=== PATIENT | male | born 1955 | race Caucasian/White ===

== ENCOUNTER 2023-02-10 09:13 | Outpatient (CLI) | payer MEDICARE, OTHER ==
[2023-02-10 09:36] LABS: BASOPHILS # (AUTO) 0.1 10^3/uL (0.0-0.1); BASOPHILS % (AUTO) 0.7 %; EOSINOPHILS # (AUTO) 0.2 10^3/uL (0.0-0.7); EOSINOPHILS % (AUTO) 2.4 %; HCT - HEMATOCRIT 44.6 % (42.0-52.0); HGB - HEMOGLOBIN 15.6 g/dL (14.0-18.0); LYMPHOCYTES # (AUTO) 2.1 10^3/uL (1.5-3.5); LYMPHOCYTES % (AUTO) 29.2 %; MEAN CORPUSCULAR HEMOGLOBIN 33.6 pg (27.0-31.0); MEAN CORPUSCULAR VOLUME 96.1 fL (80.0-94.0); MEAN PLATELET VOLUME 9.6 fL (7.4-11.4); MONOCYTES # (AUTO) 0.8 10^3/uL (0.0-1.0); MONOCYTES % (AUTO) 11.6 %; NEUTROPHILS # (AUTO) 3.9 10^3/uL (1.5-6.6); NEUTROPHILS % (AUTO) 55.3 %; PLT - PLATELET COUNT 187 10^3/uL (130-450); RED BLOOD COUNT 4.64 10^6/uL (4.70-6.10); RED CELL DISTRIBUTION WIDTH 12.3 % (12.0-15.0); WHITE BLOOD COUNT 7.1 x10^3/uL (4.8-10.8)
[2023-02-10 09:49] LABS: ALBUMIN 4.3 g/dL (3.2-5.5); ALBUMIN/GLOBULIN RATIO 1.5 (1.0-2.2); ALKALINE PHOSPHATASE 72 IU/L (42-121); ALT ALANINE AMINOTRANSFERASE 25 IU/L (10-60); AST ASPARTATE AMINOTRANSFERASE 20 IU/L (10-42); BILIRUBIN,TOTAL 0.6 mg/dL (0.2-1.0); BUN - BLOOD UREA NITROGEN 18 mg/dL (6-20); CALCIUM 9.4 mg/dL (8.5-10.3); CARBON DIOXIDE - CO2 25 mmol/L (21-32); CHLORIDE 101 mmol/L (101-111); CHOL/HDL RATIO 4.4 (<5.0); CHOLESTEROL 251 mg/dL; GFR - MDRD 75 (>89); GLUCOSE 119 mg/dL (70-100); HDL CHOLESTEROL 57 mg/dL; LDL CHOLESTEROL,CALCULATED 132 mg/dL; LDL/HDL RATIO 2.3 (<3.6); POTASSIUM 4.1 mmol/L (3.5-5.0); SODIUM 134 mmol/L (135-145); TOTAL PROTEIN 7.1 g/dL (6.7-8.2); TRIGLYCERIDES 309 mg/dL; VLDL CHOLESTEROL 62 mg/dL
[2023-02-10 10:01] LABS: THYROID STIMULATING HORMONE 4.84 uIU/mL (0.34-5.60)
[2023-02-10 10:17] LABS: ESTIMATED AVERAGE GLUCOSE 131 mg/dL (70-100); HEMOGLOBIN A1c% 6.2 % (4.27-6.07)
== END 2023-02-10 09:14 | disposition home or self-care (01) ==
LOC: LAB 09:13
PROVIDERS: ATTEND Nurse Practitioner Family
DX: I10 Essential (primary) hypertension (principal); Z13.220 Encounter for screening for lipoid disorders; Z13.1 Encounter for screening for diabetes mellitus; Z12.5 Encounter for screening for malignant neoplasm of prostate
CPT/HCPCS: 36415; 80053; 80061; 83036; 84443; 85025; G0103; 83721; 84153

== ENCOUNTER 2023-02-28 14:49 | Outpatient (CLI) | payer MEDICARE, OTHER ==
--- NOTE | 2023-02-28 16:26 | CT Report ---
PROCEDURE: Low Dose Lung Cancer Screen INDICATIONS: HEAVY SMOKER TECHNIQUE: Noncontrast low-dose axial images were acquired from the pulmonary apices to the posterior costophren ic angles. Multiplanar MIP reformats were then reconstructed. For radiation dose reduction, the follo wing was used: automated exposure control, adjustment of mA and/or kV according to patient size. COMPARISON: None. FINDINGS: Image quality: Excellent. Prior cancer history: Lungs and pleura: No pleural effusions. No pneumothorax. No suspicious pulmonary nodules which requi re follow up. Mediastinum: Heart size is normal. No pericardial effusions. No mediastinal adenopathy by size criter ia. No large vessel abnormality. Chest wall and lower neck: Thyroid is unremarkable. No axillary or supraclavicular adenopathy by size . Bones: No aggressive osseous abnormality. Upper Abdomen: Unremarkable. IMPRESSION: No visualized nodules. Lungs are clear. Lung RAD: 1 - Negative. Recommendation: Annual CT screening Reviewed by: Tereza Kaiser MD on 02/28/2023 4:25 PM PDT Approved by: Tereza Kaiser MD on 02/28/2023 4:25 PM PDT Station ID: [id number]
== END 2023-02-28 14:50 | disposition home or self-care (01) ==
LOC: DI 14:49
PROVIDERS: ATTEND Nurse Practitioner Family
DX: Z12.2 Encounter for screening for malignant neoplasm of respiratory organs (principal); F17.210 Nicotine dependence, cigarettes, uncomplicated; I10 Essential (primary) hypertension

== ENCOUNTER 2023-08-09 10:41 | Outpatient (CLI) | payer MEDICARE, OTHER ==
[2023-08-09 11:10] LABS: CALCIUM 9.6 mg/dL (8.5-10.3); POTASSIUM 4.1 mmol/L (3.5-4.5)
[2023-08-09 11:42] LABS: ESTIMATED AVERAGE GLUCOSE 134 mg/dL (70-100); HEMOGLOBIN A1c% 6.3 % (4.27-6.07)
== END 2023-08-09 10:42 | disposition home or self-care (01) ==
LOC: LAB 10:41
PROVIDERS: ATTEND Nurse Practitioner Family
DX: I10 Essential (primary) hypertension (principal); R73.03 Prediabetes
CPT/HCPCS: 36415; 80048; 83036

== ENCOUNTER 2023-11-03 14:59 | Outpatient (CLI) | payer MEDICARE, OTHER | END 2023-11-03 15:00 | disposition home or self-care (01) | LOC: DI 14:59 | PROVIDERS: ATTEND Nurse Practitioner Family | DX: I05.9 Rheumatic mitral valve disease, unspecified (principal); I11.9 Hypertensive heart disease without heart failure | CPT/HCPCS: 93306 ==

== ENCOUNTER 2024-04-20 09:12 | Outpatient (CLI) | payer MEDICARE, OTHER ==
[2024-04-20 09:24] LABS: BASOPHILS # (AUTO) 0.1 10^3/uL (0.0-0.1); BASOPHILS % (AUTO) 0.8 %; EOSINOPHILS # (AUTO) 0.2 10^3/uL (0.0-0.7); EOSINOPHILS % (AUTO) 2.2 %; HCT - HEMATOCRIT 42.5 % (42.0-52.0); HGB - HEMOGLOBIN 14.6 g/dL (14.0-18.0); LYMPHOCYTES # (AUTO) 2.8 10^3/uL (1.5-3.5); LYMPHOCYTES % (AUTO) 29.2 %; MEAN CORPUSCULAR HEMOGLOBIN 33.2 pg (27.0-31.0); MEAN CORPUSCULAR HGB CONC 34.4 g/dL (32.0-36.0); MEAN CORPUSCULAR VOLUME 96.6 fL (80.0-94.0); MEAN PLATELET VOLUME 9.9 fL (7.4-11.4); MONOCYTES # (AUTO) 0.7 10^3/uL (0.0-1.0); MONOCYTES % (AUTO) 7.5 %; NEUTROPHILS # (AUTO) 5.7 10^3/uL (1.5-6.6); NEUTROPHILS % (AUTO) 59.7 %; PLT - PLATELET COUNT 180 10^3/uL (130-450); RED CELL DISTRIBUTION WIDTH 12.1 % (12.0-15.0); WHITE BLOOD COUNT 9.5 x10^3/uL (4.8-10.8)
[2024-04-20 09:44] LABS: CALCIUM 9.6 mg/dL (8.5-10.3)
[2024-04-20 11:48] LABS: ESTIMATED AVERAGE GLUCOSE 126 mg/dL (70-100)
== END 2024-04-20 09:13 | disposition home or self-care (01) ==
LOC: LAB 09:12
PROVIDERS: ATTEND Nurse Practitioner Family
DX: I10 Essential (primary) hypertension (principal); R73.03 Prediabetes
CPT/HCPCS: 36415; 80048; 83036; 85025

== ENCOUNTER 2024-05-08 11:44 | Outpatient (CLI) | payer MEDICARE, OTHER ==
[2024-05-08 09:52] LABS: CHOL/HDL RATIO 3.6 (<5.0); CHOLESTEROL 210 mg/dL; HDL CHOLESTEROL 59 mg/dL; LDL CHOLESTEROL,CALCULATED 123 mg/dL; LDL/HDL RATIO 2.1 (<3.6); TRIGLYCERIDES 142 mg/dL; VLDL CHOLESTEROL 28 mg/dL
--- NOTE | 2024-05-08 16:43 | CT Report ---
PROCEDURE: Lung Cancer Screen INDICATIONS: SMOKER TECHNIQUE: A CT scan of the chest was performed. Intravenous contrast media was not administered. Images were re corded and evaluated at appropriate window settings. Reformats: axial MIP of the chest, coronal and s agittal. For radiation dose reduction, the following was used: automated exposure control, adjustment of mA and/or kV according to patient size. COMPARISON: 02/28/2023. FINDINGS: Image quality: Excellent. Prior cancer history: Unsure. Lungs and pleura: No pleural effusions. No pneumothorax. Stable 3 mm fissural nodule, minor fissure of right lung, current axial image 50/4 and previous axial image 139/4. No new or increasing pulmonar y nodules. Mediastinum: Heart size is normal. No pericardial effusion. No large vessel abnormality. No mediastin al adenopathy by size criteria. No significant coronary calcifications. Chest wall and lower neck: Thyroid is unremarkable. No axillary or supraclavicular adenopathy by size . Bones: No aggressive osseous abnormality. Upper Abdomen: Unremarkable. IMPRESSION: Stable 3 mm right lung fissural nodule. Otherwise unremarkable. Lung RAD: 2 - Benign. Recommendation: Continue annual screening in 12 Months with LDCT Non-Lung Significant Findings: None. Reviewed by: Timur Brooks MD on 05/08/2024 4:41 PM PDT Approved by: Timur Brooks MD on 05/08/2024 4:41 PM PDT Station ID: [id number]
== END 2024-05-08 11:45 | disposition home or self-care (01) ==
LOC: DI 11:44
PROVIDERS: ATTEND Nurse Practitioner Family
DX: Z12.2 Encounter for screening for malignant neoplasm of respiratory organs (principal); R91.1 Solitary pulmonary nodule; E78.5 Hyperlipidemia, unspecified; F17.210 Nicotine dependence, cigarettes, uncomplicated
CPT/HCPCS: 36415; 80061; 83721